=== PATIENT | male | born 1965 | race Caucasian/White ===

== ENCOUNTER 2022-08-21 15:51 | Inpatient (IN) | payer MEDICAID ==
[~2022-08-21] VITALS: Ht 165.1 cm; Wt 122.9 kg
[2022-08-21] MEDS ORDERED: ASPIRIN 81MG TABLET PO ONE (17:00)
[2022-08-21 17:19] LABS: BASOPHILS % 0.9 % (0.0-2.0); EOSINOPHILS % 3.4 % (0.0-5.0); HEMOGLOBIN. 15.8 g/dL (14.0-18.0); LYMPHOCYTES % 15.8 % (20.0-50.0); MEAN CORPUSCULAR HEMOGLOBIN 28.9 pg (28.0-32.0); MEAN CORPUSCULAR VOLUME 87.8 fL (80.0-94.0); MEAN PLATELET VOLUME 9.9 fl (7.4-10.4); MONOCYTES % 8.3 % (2.0-8.0); NEUTROPHILS % 71.6 % (40.0-76.0); PLATELET 198 x1000/uL (130-400); RED BLOOD CELL COUNT 5.47 mill/uL (4.7-6.1); RED CELL DISTRIBUTION WIDTH 13.8 % (11.6-14.6)
[2022-08-21 17:27] LABS: CHLORIDE 102 mEq/L (98-107)
[2022-08-21] MEDS ORDERED: ONDANSETRON HCL 4MG/2ML INJ IV PRN (19:15)
[2022-08-21] MEDS ORDERED: ACETAMINOPHEN 325MG TABLET PO PRN (19:15)
[2022-08-21] MEDS ORDERED: MAGNESIUM/ALUMINUM HYDROXIDE/SIMETHICONE 30ML UDC PO PRN (19:15)
[2022-08-21] MEDS ORDERED: DEXTROSE 50% WATER 50ML SYRINGE IV PRN (19:15)
[2022-08-21] MEDS ORDERED: DIPHENHYDRAMINE 50MG/ML VIAL IV PRN (19:15)
[2022-08-21] MEDS ORDERED: GUAIFENESIN 200MG/10ML SUGAR FREE UDC PO PRN (19:15)
[2022-08-21] MEDS: BUDESONIDE 0.5MG/2ML NEB HHN SCH (19:48)
[2022-08-21] MEDS: IPRATROPIUM/ALBUTEROL 0.5-3(2.5)MG/3ML NEB HHN PRN (19:49)
[2022-08-21 19:58] LABS: BG CARBOXYHEMOGLOBIN 2.3 % (0.5-1.5); BG DEOXYHEMOGLOBIN 3.3 % (0.0-5.0); BG FRACTION INSPIRED OXYGEN 50; BG HCO3 ACT 30.1 mmol/L (22.0-26.0); BG METHEMOGLOBIN 0.6 % (0.0-1.5); BG OXYGEN SATURATION 96.6 % (92.0-98.5); BG OXYHEMOGLOBIN 93.8 % (94.0-97.0); BG PH 7.118 (7.350-7.450); BG PO2 104.1 mmHg (75.0-100.0); BG SAMPLE SITE RIGHT RADIAL; BG TOTAL HEMOGLOBIN 17.3 g/dL (12.0-18.0); BG VENT MODE MASK - SIMPLE
[2022-08-21] MEDS ORDERED: ZOLPIDEM TARTRATE 5MG TABLET PO PRN (20:00)
[2022-08-21] MEDS: ENOXAPARIN 30MG/0.3ML SYR SUBCUT SCH (20:22)
[2022-08-21] MEDS: CLONIDINE 0.1MG TABLET PO PRN (20:22)
[2022-08-21] MEDS: BLOOD SUGAR DIAGNOSTIC STRIP TEST SCH (21:00)
[2022-08-21 21:16] LABS: CLARITY URINE CLEAR (CLEAR); COLOR URINE YELLOW (YELLOW); KETONES URINE NEGATIVE (NEGATIVE); LEUKOCYTE ESTERASE URINE NEGATIVE (NEGATIVE); NITRITE URINE NEGATIVE (NEGATIVE); OCCULT BLOOD URINE NEGATIVE (NEGATIVE); PROTEIN URINE 1+ (NEGATIVE); SPECIFIC GRAVITY URINE 1.015 (1.005-1.030); UROBILINOGEN URINE 0.2 E.U./dL (0.2-1.0)
[2022-08-21 21:30] VITALS: BP 163/78
[2022-08-21 21:43] VITALS: BP 163/78
[2022-08-21] MEDS: SODIUM CHLORIDE 0.9% INJ 3ML FLUSH IVF SCH (22:00)
[2022-08-21] MEDS: OMEPRAZOLE 20MG CAPSULE EXTENDED RELEASE PO SCH (23:54)
[2022-08-21] MEDS: AMLODIPINE 5MG TABLET PO SCH (23:55)
[2022-08-22] VITALS: BP 139/65
[2022-08-22 04:00] VITALS: BP 139/85
[2022-08-22] MEDS: SODIUM CHLORIDE 0.9% INJ 3ML FLUSH IVF SCH ×3 (06:03→20:47)
[2022-08-22] MEDS: ACETAMINOPHEN 325MG TABLET PO PRN ×2 (06:03→20:50)
[2022-08-22 07:46] LABS: T4 FREE 0.87 ng/dL (0.76-1.46)
[2022-08-22] MEDS: INSULIN LISPRO 100 UNITS/ML SUBCUT SCH ×5 (07:50→20:55)
[2022-08-22 08:00] VITALS: BP 146/83
[2022-08-22] MEDS ORDERED: NITROGLYCERIN SPRAY/4.9GM CAN TL SCH (08:00)
[2022-08-22] MEDS: FUROSEMIDE 40MG TABLET PO SCH (08:11)
[2022-08-22] MEDS: CARVEDILOL 3.125 MG TABLET PO SCH ×2 (08:11→20:46)
[2022-08-22] MEDS: AMLODIPINE 5MG TABLET PO SCH ×2 (08:11→20:46)
[2022-08-22] MEDS: OMEPRAZOLE 20MG CAPSULE EXTENDED RELEASE PO SCH ×2 (08:11→20:46)
[2022-08-22] MEDS: BLOOD SUGAR DIAGNOSTIC STRIP TEST SCH ×4 (08:12→20:47)
[2022-08-22] MEDS ORDERED: SPIRONOLACTONE 25MG TABLET PO SCH (09:00)
[2022-08-22] MEDS: IPRATROPIUM/ALBUTEROL 0.5-3(2.5)MG/3ML NEB HHN PRN ×2 (09:30→20:30)
[2022-08-22] MEDS: BUDESONIDE 0.5MG/2ML NEB HHN SCH ×2 (09:30→20:30)
[2022-08-22] MEDS ORDERED: IOHEXOL-350 100 ML BOTTLE ONE (11:56)
[2022-08-22 12:00] VITALS: BP 132/77
[2022-08-22] MEDS: ENOXAPARIN 30MG/0.3ML SYR SUBCUT SCH ×2 (13:41→20:47)
[2022-08-22 13:44] LABS: BG BASE EXCESS 8.9 mmol/L (-2.0-2.0); BG FRACTION INSPIRED OXYGEN 40; BG HCO3 ACT 39.8 mmol/L (22.0-26.0); BG METHEMOGLOBIN 0.5 % (0.0-1.5); BG OXYGEN SATURATION 97.9 % (92.0-98.5); BG OXYHEMOGLOBIN 95.5 % (94.0-97.0); BG PCO2 85.4 mmHg (35.0-45.0); BG PH 7.286 (7.350-7.450); BG PO2 106.4 mmHg (75.0-100.0); BG SAMPLE SITE LEFT RADIAL; BG TOTAL HEMOGLOBIN 16.1 g/dL (12.0-18.0); BG VENT MODE MASK - SIMPLE
[2022-08-22 16:00] VITALS: BP 118/82
[2022-08-22 17:48] LABS: CREATINE KINASE MB FRACTION 3.3 ng/mL (0.5-3.6)
[2022-08-22 19:41] VITALS: BP 140/70
[2022-08-22] MEDS: ATORVASTATIN CALCIUM 40MG TABLET PO SCH (20:46)
[2022-08-23] VITALS (7 sets, daily range): BP systolic 122–158; BP diastolic 62–87
[2022-08-23 00:08] LABS: CREATINE KINASE MB FRACTION 2.6 ng/mL (0.5-3.6)
[2022-08-23] MEDS: OMEPRAZOLE 20MG CAPSULE EXTENDED RELEASE PO SCH ×2 (06:26→21:14)
[2022-08-23] MEDS: BLOOD SUGAR DIAGNOSTIC STRIP TEST SCH ×4 (06:27→21:15)
[2022-08-23] MEDS: SODIUM CHLORIDE 0.9% INJ 3ML FLUSH IVF SCH ×3 (06:27→21:15)
[2022-08-23 07:08] LABS: CREATINE KINASE MB FRACTION 2.5 ng/mL (0.5-3.6)
[2022-08-23] MEDS: INSULIN LISPRO 100 UNITS/ML SUBCUT SCH ×4 (07:50→21:00)
[2022-08-23 08:35] LABS: BG BASE EXCESS 5.3 mmol/L (-2.0-2.0); BG CARBOXYHEMOGLOBIN 0.3 % (0.5-1.5); BG DEOXYHEMOGLOBIN 1.5 % (0.0-5.0); BG FRACTION INSPIRED OXYGEN 60; BG HCO3 ACT 36.5 mmol/L (22.0-26.0); BG METHEMOGLOBIN 0.5 % (0.0-1.5); BG OXYGEN SATURATION 98.5 % (92.0-98.5); BG OXYHEMOGLOBIN 97.7 % (94.0-97.0); BG PCO2 84.5 mmHg (35.0-45.0); BG PH 7.253 (7.350-7.450); BG PO2 145.2 mmHg (75.0-100.0); BG SAMPLE SITE RIGHT RADIAL; BG TOTAL HEMOGLOBIN 16.9 g/dL (12.0-18.0); BG VENT MODE MASK - SIMPLE
[2022-08-23] MEDS: BUDESONIDE 0.5MG/2ML NEB HHN SCH ×2 (09:15→20:47)
[2022-08-23] MEDS: FUROSEMIDE 40MG TABLET PO SCH (09:55)
[2022-08-23] MEDS: AMLODIPINE 5MG TABLET PO SCH ×2 (09:55→21:15)
[2022-08-23] MEDS: CARVEDILOL 3.125 MG TABLET PO SCH ×2 (09:55→21:14)
[2022-08-23] MEDS: ENOXAPARIN 30MG/0.3ML SYR SUBCUT SCH ×2 (09:55→21:13)
[2022-08-23] MEDS: IPRATROPIUM/ALBUTEROL 0.5-3(2.5)MG/3ML NEB HHN PRN (20:47)
[2022-08-23] MEDS: ATORVASTATIN CALCIUM 40MG TABLET PO SCH (21:14)
[2022-08-24 04:00] VITALS: BP 163/71
[2022-08-24] MEDS: CLONIDINE 0.1MG TABLET PO PRN (04:20)
[2022-08-24] MEDS: BLOOD SUGAR DIAGNOSTIC STRIP TEST SCH ×3 (06:41→20:30)
[2022-08-24] MEDS: SODIUM CHLORIDE 0.9% INJ 3ML FLUSH IVF SCH ×3 (06:42→21:31)
[2022-08-24] MEDS: OMEPRAZOLE 20MG CAPSULE EXTENDED RELEASE PO SCH ×2 (06:42→20:50)
[2022-08-24] MEDS: INSULIN LISPRO 100 UNITS/ML SUBCUT SCH ×3 (07:50→20:30)
[2022-08-24 08:00] VITALS: BP 146/63
[2022-08-24] MEDS: ENOXAPARIN 30MG/0.3ML SYR SUBCUT SCH ×2 (08:52→20:49)
[2022-08-24] MEDS: CARVEDILOL 3.125 MG TABLET PO SCH ×2 (08:53→20:50)
[2022-08-24] MEDS: FUROSEMIDE 40MG TABLET PO SCH (08:53)
[2022-08-24] MEDS: AMLODIPINE 5MG TABLET PO SCH ×2 (08:53→20:49)
[2022-08-24 12:00] VITALS: BP 146/63
[2022-08-24 14:57] VITALS: BP 146/87
[2022-08-24 16:00] VITALS: BP 149/80
[2022-08-24 20:00] VITALS: BP 152/82
[2022-08-24] MEDS: BUDESONIDE 0.5MG/2ML NEB HHN SCH ×2 (20:38→20:59)
[2022-08-24] MEDS: ATORVASTATIN CALCIUM 40MG TABLET PO SCH (20:50)
[2022-08-25 00:25] VITALS: BP 153/84
[2022-08-25 04:00] VITALS: BP 157/82
[2022-08-25] MEDS: ACETAMINOPHEN 325MG TABLET PO PRN (06:07)
[2022-08-25] MEDS: SODIUM CHLORIDE 0.9% INJ 3ML FLUSH IVF SCH ×3 (06:08→21:42)
[2022-08-25] MEDS: OMEPRAZOLE 20MG CAPSULE EXTENDED RELEASE PO SCH ×2 (06:21→21:41)
[2022-08-25] MEDS: BLOOD SUGAR DIAGNOSTIC STRIP TEST SCH ×4 (06:22→21:26)
[2022-08-25] MEDS: INSULIN LISPRO 100 UNITS/ML SUBCUT SCH ×4 (07:50→21:00)
[2022-08-25 08:16] VITALS: BP 158/76
[2022-08-25] MEDS: CARVEDILOL 3.125 MG TABLET PO SCH ×2 (08:27→21:42)
[2022-08-25] MEDS: AMLODIPINE 5MG TABLET PO SCH ×2 (08:27→21:42)
[2022-08-25] MEDS: FUROSEMIDE 40MG TABLET PO SCH (08:27)
[2022-08-25] MEDS: ENOXAPARIN 30MG/0.3ML SYR SUBCUT SCH ×2 (08:28→20:00)
[2022-08-25 11:53] VITALS: BP 146/80
[2022-08-25 16:20] VITALS: BP 139/70
[2022-08-25 20:00] VITALS: BP 149/78
[2022-08-25] MEDS: BUDESONIDE 0.5MG/2ML NEB HHN SCH (20:38)
[2022-08-25] MEDS: ATORVASTATIN CALCIUM 40MG TABLET PO SCH (21:42)
[2022-08-26] VITALS (42 sets, daily range): BP systolic 83–225; BP diastolic 28–128
[2022-08-26] MEDS: SODIUM CHLORIDE 0.9% INJ 3ML FLUSH IVF SCH ×3 (05:56→22:00)
[2022-08-26] MEDS: BLOOD SUGAR DIAGNOSTIC STRIP TEST SCH ×3 (07:01→16:08)
[2022-08-26] MEDS: INSULIN LISPRO 100 UNITS/ML SUBCUT SCH ×4 (07:01→21:00)
[2022-08-26] MEDS: OMEPRAZOLE 20MG CAPSULE EXTENDED RELEASE PO SCH ×2 (07:02→21:00)
[2022-08-26] MEDS: ENOXAPARIN 30MG/0.3ML SYR SUBCUT SCH ×2 (08:00→20:00)
[2022-08-26] MEDS: FUROSEMIDE 40MG TABLET PO SCH (08:23)
[2022-08-26] MEDS: CARVEDILOL 3.125 MG TABLET PO SCH ×2 (08:23→21:00)
[2022-08-26] MEDS: AMLODIPINE 5MG TABLET PO SCH ×2 (08:24→21:00)
[2022-08-26] MEDS: BUDESONIDE 0.5MG/2ML NEB HHN SCH (08:50)
[2022-08-26 14:50] LABS: CHLORIDE 100 mEq/L (98-107)
[2022-08-26] MEDS ORDERED: THROMBIN (BOVINE) 5000 UNITS/VIAL TOP ONE (15:51)
[2022-08-26] MEDS ORDERED: LIDOCAINE HCL 1% 10 MG/ML 10ML VIAL ONE (15:51)
[2022-08-26] MEDS ORDERED: POLYMYXIN B SULFATE 500000 UNITS/VIAL ONE (15:51)
[2022-08-26] MEDS ORDERED: BUPIVACAINE HCL/PF 0.5% (5MG/ML) 10ML ONE (15:51)
[2022-08-26] MEDS ORDERED: HEPARIN SODIUM 1,000 UNIT/1ML VIAL IV ONE (15:51)
[2022-08-26] MEDS ORDERED: LIDOCAINE HCL 1% 50ML VIAL (10MG/ML) ONE (16:31)
[2022-08-26] MEDS ORDERED: ONDANSETRON HCL 4MG/2ML INJ ONE (16:31)
[2022-08-26] MEDS ORDERED: SUCCINYLCHOLINE CHLORIDE 200MG/10ML IV ONE (16:31)
[2022-08-26] MEDS ORDERED: CEFAZOLIN SODIUM 1000MG/VIAL ONE (16:31)
[2022-08-26] MEDS ORDERED: ROCURONIUM BROMIDE 10MG/ML VIAL 5ML IV ONE (16:31)
[2022-08-26] MEDS ORDERED: NEOSTIGMINE METHYLSULFATE 1MG/ML 10 ML VIAL ONE (16:31)
[2022-08-26] MEDS ORDERED: PROPOFOL 200MG/20ML VIAL IV ONE (16:32)
[2022-08-26] MEDS ORDERED: GLYCOPYRROLATE 0.2 MG/ML 2ML VIAL ONE ×2 (16:32)
[2022-08-26] MEDS ORDERED: FENTANYL CITRATE/PF 50MCG/ML 2ML VIAL ONE ×3 (16:32→16:51)
[2022-08-26] MEDS ORDERED: MIDAZOLAM HCL 2 MG/2 ML VIAL ONE ×3 (16:33→16:51)
[2022-08-26] MEDS ORDERED: EPHEDRINE SULFATE 50MG/ML VIAL ONE (17:32)
[2022-08-26] MEDS ORDERED: LIDOCAINE HCL 1% 20ML VIAL (Pyxis) INJ ONE (17:38)
[2022-08-26] MEDS ORDERED: HYDROMORPHONE HCL/PF 2MG/ML CPJ ONE (17:38)
[2022-08-26] MEDS ORDERED: PROTAMINE SULFATE 10MG/ML VIAL 5ML IV ONE (18:47)
[2022-08-26] MEDS ORDERED: VECURONIUM BROMIDE 10 MG/VIAL IV ONE (18:47)
[2022-08-26] MEDS ORDERED: DOPAMINE 400MG/250ML PREMIX 250 ML IV PRN (19:45)
[2022-08-26] MEDS ORDERED: NITROGLYCERIN 50MG PREMIX 250 ML IV NR (19:45)
[2022-08-26] MEDS: NITROGLYCERIN 50MG PREMIX 250 ML IV PRN (19:59)
[2022-08-26] MEDS: MORPHINE SULFATE 2 MG/ML CPJ (NOT FOR IM USE) IV PRN (20:29)
[2022-08-26] MEDS ORDERED: MORPHINE SULFATE 2 MG/ML CPJ (NOT FOR IM USE) IV PRN (20:30)
[2022-08-26] MEDS: PROPOFOL 10MG/ML 100ML 100 ML IV PRN ×2 (20:32→22:52)
[2022-08-26] MEDS: ATORVASTATIN CALCIUM 40MG TABLET PO SCH (21:00)
[2022-08-26] MEDS: HYDROMORPHONE HCL/PF 2MG/ML CPJ IV PRN (21:17)
[2022-08-26] MEDS: LACTATED RINGERS 1,000 ML IV SCH ×2 (21:25→22:48)
[2022-08-26 22:36] LABS: BG BASE EXCESS -3.3 mmol/L (-2.0-2.0); BG CARBOXYHEMOGLOBIN 0.6 % (0.5-1.5); BG DEOXYHEMOGLOBIN 4.8 % (0.0-5.0); BG FRACTION INSPIRED OXYGEN 100; BG HCO3 ACT 22.9 mmol/L (22.0-26.0); BG METHEMOGLOBIN 0.4 % (0.0-1.5); BG OXYGEN SATURATION 95.2 % (92.0-98.5); BG OXYHEMOGLOBIN 94.2 % (94.0-97.0); BG PH 7.324 (7.350-7.450); BG PO2 80.9 mmHg (75.0-100.0); BG SAMPLE SITE ALINE; BG TOTAL HEMOGLOBIN 16.7 g/dL (12.0-18.0); BG TOTAL RESPIRATORY RATE 15 b/min; BG VENT MODE VENT - AC
[2022-08-27] VITALS (108 sets, daily range): BP systolic 73–199; BP diastolic 25–139
[2022-08-27] MEDS ORDERED: DEXTROSE 50% WATER 50ML SYRINGE IV PRN (00:15)
[2022-08-27 01:10] LABS: BG BASE EXCESS -0.1 mmol/L (-2.0-2.0); BG CARBOXYHEMOGLOBIN 0.4 % (0.5-1.5); BG DEOXYHEMOGLOBIN 3.2 % (0.0-5.0); BG FRACTION INSPIRED OXYGEN 100; BG HCO3 ACT 23.9 mmol/L (22.0-26.0); BG METHEMOGLOBIN 0.7 % (0.0-1.5); BG OXYGEN SATURATION 96.8 % (92.0-98.5); BG OXYHEMOGLOBIN 95.7 % (94.0-97.0); BG PCO2 37.2 mmHg (35.0-45.0); BG PH 7.425 (7.350-7.450); BG PO2 85.7 mmHg (75.0-100.0); BG SAMPLE SITE ALINE; BG TOTAL HEMOGLOBIN 16.7 g/dL (12.0-18.0); BG TOTAL RESPIRATORY RATE 15 b/min; BG VENT MODE VENT - AC
[2022-08-27] MEDS: INSULIN LISPRO 100 UNITS/ML SUBCUT SCH ×8 (01:11→21:00)
[2022-08-27] MEDS: MORPHINE SULFATE 2 MG/ML CPJ (NOT FOR IM USE) IV PRN ×2 (02:08→07:45)
[2022-08-27] MEDS: HYDROMORPHONE HCL/PF 2MG/ML CPJ IV PRN ×2 (04:01→10:50)
[2022-08-27] MEDS: PROPOFOL 10MG/ML 100ML 100 ML IV PRN ×3 (04:34→10:02)
[2022-08-27] MEDS: BLOOD SUGAR DIAGNOSTIC STRIP TEST SCH ×3 (06:33→17:13)
[2022-08-27] MEDS: SODIUM CHLORIDE 0.9% INJ 3ML FLUSH IVF SCH ×3 (06:33→22:00)
[2022-08-27 06:34] LABS: HEMATOCRIT. 46.5 % (42.0-52.0); HEMOGLOBIN. 15.7 g/dL (14.0-18.0); MEAN CORPUSCULAR VOLUME 85.6 fL (80.0-94.0); MEAN PLATELET VOLUME 9.9 fl (7.4-10.4); PLATELET 214 x1000/uL (130-400); RED BLOOD CELL COUNT 5.43 mill/uL (4.7-6.1); RED CELL DISTRIBUTION WIDTH 13.7 % (11.6-14.6)
[2022-08-27 07:03] LABS: CHLORIDE 101 mEq/L (98-107); PHOSPHORUS 2.5 mg/dL (2.5-4.9)
[2022-08-27] MEDS: LACTATED RINGERS 1,000 ML IV SCH (07:46)
[2022-08-27] MEDS: OMEPRAZOLE 20MG CAPSULE EXTENDED RELEASE PO SCH ×2 (07:50→21:05)
[2022-08-27 08:03] LABS: PLATELET ESTIMATE NORMAL
[2022-08-27] MEDS: BUDESONIDE 0.5MG/2ML NEB HHN SCH ×2 (08:30→20:20)
[2022-08-27] MEDS: IPRATROPIUM/ALBUTEROL 0.5-3(2.5)MG/3ML NEB HHN PRN ×3 (08:30→20:20)
[2022-08-27] MEDS: FUROSEMIDE 40MG TABLET PO SCH (09:00)
[2022-08-27] MEDS: CARVEDILOL 3.125 MG TABLET PO SCH ×2 (09:00→21:05)
[2022-08-27] MEDS: AMLODIPINE 5MG TABLET PO SCH ×2 (09:00→23:35)
[2022-08-27] MEDS ORDERED: MAGNESIUM 2 G PREMIX 50 ML IV NR (09:15)
[2022-08-27 09:58] LABS: BG BASE EXCESS 4.1 mmol/L (-2.0-2.0); BG CARBOXYHEMOGLOBIN 0.5 % (0.5-1.5); BG DEOXYHEMOGLOBIN 1.1 % (0.0-5.0); BG FRACTION INSPIRED OXYGEN 100; BG HCO3 ACT 29.9 mmol/L (22.0-26.0); BG METHEMOGLOBIN 0.6 % (0.0-1.5); BG OXYGEN SATURATION 98.9 % (92.0-98.5); BG OXYHEMOGLOBIN 97.8 % (94.0-97.0); BG PCO2 48.8 mmHg (35.0-45.0); BG PH 7.405 (7.350-7.450); BG PO2 150.9 mmHg (75.0-100.0); BG SAMPLE SITE ALINE; BG TOTAL HEMOGLOBIN 15.3 g/dL (12.0-18.0); BG VENT MODE VENT - AC
[2022-08-27] MEDS: ENOXAPARIN 30MG/0.3ML SYR SUBCUT SCH ×2 (10:49→21:03)
[2022-08-27 13:44] LABS: BG BASE EXCESS 0.7 mmol/L (-2.0-2.0); BG CARBOXYHEMOGLOBIN 0.4 % (0.5-1.5); BG DEOXYHEMOGLOBIN 6.4 % (0.0-5.0); BG FRACTION INSPIRED OXYGEN 40; BG HCO3 ACT 26.5 mmol/L (22.0-26.0); BG METHEMOGLOBIN 0.3 % (0.0-1.5); BG OXYGEN SATURATION 93.6 % (92.0-98.5); BG OXYHEMOGLOBIN 92.9 % (94.0-97.0); BG PCO2 46.5 mmHg (35.0-45.0); BG PH 7.374 (7.350-7.450); BG PO2 69.1 mmHg (75.0-100.0); BG SAMPLE SITE ALINE; BG VENT MODE VENT - CPAP
[2022-08-27] MEDS ORDERED: FUROSEMIDE 40MG/4ML VIAL IVP NR (20:30)
[2022-08-27] MEDS: ATORVASTATIN CALCIUM 40MG TABLET PO SCH (21:05)
[2022-08-28] VITALS (77 sets, daily range): BP systolic 71–180; BP diastolic 49–147
[2022-08-28] MEDS: BLOOD SUGAR DIAGNOSTIC STRIP TEST SCH ×4 (00:07→17:52)
[2022-08-28] MEDS: NITROGLYCERIN 50MG PREMIX 250 ML IV PRN (04:40)
[2022-08-28] MEDS: SODIUM CHLORIDE 0.9% INJ 3ML FLUSH IVF SCH ×3 (06:44→21:19)
[2022-08-28 07:34] LABS: BASOPHILS % 0.2 % (0.0-2.0); HEMATOCRIT. 43.8 % (42.0-52.0); HEMOGLOBIN. 14.7 g/dL (14.0-18.0); LYMPHOCYTES % 7.4 % (20.0-50.0); MEAN CORPUSCULAR HEMOGLOBIN 29.2 pg (28.0-32.0); MEAN CORPUSCULAR VOLUME 86.8 fL (80.0-94.0); MEAN PLATELET VOLUME 10.1 fl (7.4-10.4); MONOCYTES % 10.2 % (2.0-8.0); NEUTROPHILS % 82.2 % (40.0-76.0); PLATELET 179 x1000/uL (130-400); RED BLOOD CELL COUNT 5.05 mill/uL (4.7-6.1)
[2022-08-28] MEDS: INSULIN LISPRO 100 UNITS/ML SUBCUT SCH ×5 (07:46→21:00)
[2022-08-28] MEDS: ENOXAPARIN 30MG/0.3ML SYR SUBCUT SCH ×2 (08:05→21:19)
[2022-08-28] MEDS: FUROSEMIDE 40MG TABLET PO SCH (08:06)
[2022-08-28] MEDS: CARVEDILOL 3.125 MG TABLET PO SCH (08:06)
[2022-08-28] MEDS: AMLODIPINE 5MG TABLET PO SCH ×2 (08:06→21:17)
[2022-08-28] MEDS: OMEPRAZOLE 20MG CAPSULE EXTENDED RELEASE PO SCH ×2 (08:06→21:17)
[2022-08-28] MEDS: BUDESONIDE 0.5MG/2ML NEB HHN SCH ×2 (08:18→20:28)
[2022-08-28 08:43] LABS: CHLORIDE 101 mEq/L (98-107); PHOSPHORUS 3.5 mg/dL (2.5-4.9)
[2022-08-28] MEDS ORDERED: HYDROCODONE/ACETAMINOPHEN 5/325MG TABLET PO PRN (08:45)
[2022-08-28] MEDS ORDERED: AMLODIPINE 5MG TABLET PO SCH (09:00)
[2022-08-28] MEDS: FUROSEMIDE 40MG/4ML VIAL IVP SCH ×2 (09:29→17:53)
[2022-08-28] MEDS: CARVEDILOL 12.5MG TABLET PO SCH ×2 (09:30→21:18)
[2022-08-28] MEDS: IPRATROPIUM/ALBUTEROL 0.5-3(2.5)MG/3ML NEB HHN SCH (20:27)
[2022-08-28] MEDS: ATORVASTATIN CALCIUM 40MG TABLET PO SCH (21:17)
[2022-08-29] VITALS (13 sets, daily range): BP systolic 48–137; BP diastolic 40–98
[2022-08-29] MEDS: BLOOD SUGAR DIAGNOSTIC STRIP TEST SCH ×4 (00:22→17:21)
[2022-08-29] MEDS: IPRATROPIUM/ALBUTEROL 0.5-3(2.5)MG/3ML NEB HHN SCH ×4 (01:30→20:18)
[2022-08-29] MEDS: SODIUM CHLORIDE 0.9% INJ 3ML FLUSH IVF SCH ×3 (05:24→21:19)
[2022-08-29] MEDS: OMEPRAZOLE 20MG CAPSULE EXTENDED RELEASE PO SCH ×2 (07:50→21:18)
[2022-08-29] MEDS: ENOXAPARIN 30MG/0.3ML SYR SUBCUT SCH ×2 (08:00→21:18)
[2022-08-29] MEDS: INSULIN LISPRO 100 UNITS/ML SUBCUT SCH ×3 (08:20→17:21)
[2022-08-29] MEDS: BUDESONIDE 0.5MG/2ML NEB HHN SCH ×2 (08:58→20:18)
[2022-08-29] MEDS: CARVEDILOL 12.5MG TABLET PO SCH ×2 (09:48→21:18)
[2022-08-29] MEDS: AMLODIPINE 5MG TABLET PO SCH ×2 (09:49→21:00)
[2022-08-29] MEDS: FUROSEMIDE 40MG TABLET PO SCH (09:50)
[2022-08-29] MEDS ORDERED: INSULIN LISPRO 100 UNITS/ML SUBCUT SCH (18:00)
[2022-08-29] MEDS: ATORVASTATIN CALCIUM 40MG TABLET PO SCH (21:18)
[2022-08-30] VITALS (16 sets, daily range): BP systolic 106–156; BP diastolic 40–112
[2022-08-30] MEDS: IPRATROPIUM/ALBUTEROL 0.5-3(2.5)MG/3ML NEB HHN SCH ×3 (02:30→14:03)
[2022-08-30] MEDS: INSULIN LISPRO 100 UNITS/ML SUBCUT SCH ×3 (06:00→13:10)
[2022-08-30] MEDS: BLOOD SUGAR DIAGNOSTIC STRIP TEST SCH ×3 (06:06→12:48)
[2022-08-30] MEDS: SODIUM CHLORIDE 0.9% INJ 3ML FLUSH IVF SCH ×2 (06:06→13:12)
[2022-08-30] MEDS: OMEPRAZOLE 20MG CAPSULE EXTENDED RELEASE PO SCH (07:50)
[2022-08-30] MEDS: BUDESONIDE 0.5MG/2ML NEB HHN SCH (08:13)
[2022-08-30] MEDS: ENOXAPARIN 30MG/0.3ML SYR SUBCUT SCH (09:25)
[2022-08-30] MEDS: CARVEDILOL 12.5MG TABLET PO SCH (09:26)
[2022-08-30] MEDS: AMLODIPINE 5MG TABLET PO SCH (09:26)
[2022-08-30] MEDS: FUROSEMIDE 40MG TABLET PO SCH (09:26)
[2022-08-30] MEDS ORDERED: COR12 PO (11:03)
[2022-08-30] MEDS ORDERED: FURO40TA5 PO (11:03)
[2022-08-30] MEDS ORDERED: AMLO5TAB88 PO (11:03)
[2022-08-30] MEDS ORDERED: LIP40 PO (11:03)
[2022-08-30] MEDS ORDERED: ASPI-1406 MT (11:05)
[2022-08-31] MEDS ORDERED: ASPIRIN 81MG TABLET PO SCH (09:00)
== END 2022-08-30 16:45 | disposition home health service (06) | DRG 24 ==
LOC: ER 15:51 → 6WST 18:49 → EDBEDREQ 18:56 → ENRESERV 19:47 → CVICU 08-26 19:10
PROVIDERS: ADMIT Internal Medicine; ATTEND Internal Medicine
PROC: 5A09357 Assistance with Respiratory Ventilation, Less than 24 Consecutive Hours, Continuous Positive Airway Pressure (ICD-10-PCS; 2022-08-22)
PROC: 5A09357 Assistance with Respiratory Ventilation, Less than 24 Consecutive Hours, Continuous Positive Airway Pressure (ICD-10-PCS; 2022-08-23)
PROC: 5A09357 Assistance with Respiratory Ventilation, Less than 24 Consecutive Hours, Continuous Positive Airway Pressure (ICD-10-PCS; 2022-08-24)
PROC: 03CK0ZZ Extirpation of Matter from Right Internal Carotid Artery, Open Approach (ICD-10-PCS; principal; 2022-08-26)
PROC: 06HY33Z Insertion of Infusion Device into Lower Vein, Percutaneous Approach (ICD-10-PCS; 2022-08-26)
PROC: 03UK0KZ Supplement Right Internal Carotid Artery with Nonautologous Tissue Substitute, Open Approach (ICD-10-PCS; 2022-08-26)
PROC: 5A09357 Assistance with Respiratory Ventilation, Less than 24 Consecutive Hours, Continuous Positive Airway Pressure (ICD-10-PCS; 2022-08-26)
DX: I65.21 Occlusion and stenosis of right carotid artery (principal); J96.02 Acute respiratory failure with hypercapnia; I50.33 Acute on chronic diastolic (congestive) heart failure; E44.1 Mild protein-calorie malnutrition; I25.10 Atherosclerotic heart disease of native coronary artery without angina pectoris; I11.0 Hypertensive heart disease with heart failure; E11.9 Type 2 diabetes mellitus without complications; J44.9 Chronic obstructive pulmonary disease, unspecified; E66.2 Morbid (severe) obesity with alveolar hypoventilation; Z20.822 Contact with and (suspected) exposure to COVID-19; E78.5 Hyperlipidemia, unspecified; R07.89 Other chest pain; E87.29 Other acidosis; E87.70 Fluid overload, unspecified; F17.210 Nicotine dependence, cigarettes, uncomplicated; Z68.42 Body mass index [BMI] 45.0-49.9, adult; Z86.73 Personal history of transient ischemic attack (TIA), and cerebral infarction without residual deficits
CPT/HCPCS: 31500; 36415; 36600; 70551; 71045; 75571; 80048; 80053; 80061; 81003; 82375; 82550; 82553; 82805; 82962; 83036; 83735; 83880; 84100; 84439; 84443; 84478; 84484; 85025; 85379; 87070; 87426; 88304; 88311; 92610; 93005; 93308; 93970; 94003; 94640; 94660; 97162; 97166; 97535; 99285; C9803; J0330; J0690; J1170; J1200; J1265; J1644; J1650; J1815; J1940; J2250; J2270; J2405; J2704; J2710; J2720; J3010; J3475; J3490; J7120; J7626; L3908; Q9967

== ENCOUNTER 2022-09-12 18:19 | Emergency (ER) | payer MEDICAID ==
[~2022-09-12] VITALS: Ht 165.1 cm; Wt 132.0 kg
[~2022-09-12 18:19] MED LIST: AMLO5TAB88 PO; ASPI-1406 MT; COR12 PO; FURO40TA5 PO; LIP40 PO
[2022-09-12 22:28] VITALS: BP 122/78
== END 2022-09-12 22:30 | disposition home or self-care (01) ==
LOC: ER 18:49
DX: Z48.02 Encounter for removal of sutures (principal); E78.00 Pure hypercholesterolemia, unspecified; I50.9 Heart failure, unspecified
CPT/HCPCS: 99281